=== PATIENT | female | born 1995 | race Caucasian/White ===

== ENCOUNTER 2020-06-05 17:31 | Outpatient (REF) | payer BC, SELFPAY | END 2020-06-05 17:32 | disposition home or self-care (01) | LOC: HO.LAB 17:31 | PROVIDERS: Visit Provider Internal Medicine | DX: Z20.828 Contact with and (suspected) exposure to other viral communicable diseases (principal) | CPT/HCPCS: 87635 ==

== ENCOUNTER 2020-11-10 15:39 | Emergency (ER) | payer MEDICAID, SELFPAY ==
[2020-11-10 17:18] VITALS: BP 118/50; PULSE 89; RESP 16; TEMP 37.2; O2SAT 100; BMI 22.4
--- NOTE | 2020-11-10 17:19 | ED.EYEPROB ---
HPI - Eye Problem General Chief complaint: Eye Problems Stated complaint: eye issues Time Seen by Provider: 11/10/20 17:11 History of Present Illness HPI Narrative: Patient complains of left eye redness with a discharge and eyes being stuck together this morning as well as some mild pain in the eye, no vision loss Related Data Previous Rx's Medication Instructions Recorded erythromycin 0.5 inch OPHTHALMIC (EYE) TID 5 11/10/20 Days #3.5 g ibuprofen 600 mg PO Q6H PRN #20 tab 11/10/20 Allergies Allergy/AdvReac Type Severity Reaction Status Date / Time No Known Allergies Allergy Verified 11/10/20 17:22 [No Known Allergies*] Review of Systems Review of Systems: Positive for left eye discomfort as well as redness and discharge Negatives are no fever no chills no dizziness no weakness no headache no vision loss no photophobia no runny nose no sore throat no rash PMFSH Past Medical History Attestation statement: The following information was validated with the patient. PMFSH Narrative: Patient does not wear contact Source: nursing notes reviewed Social History Social History Alcohol intake: never Smoked in Last 30 Days: No Use of substances other than those prescribed or required for medical reasons: No Any prior treatment program specific to substance use: No Advance Directives: No Advance Directives Information Provided: No Physical Exam Vital Signs: Vital Signs: Last Vital Signs Temp 99.0 F 11/10/20 17:18 Pulse 89 11/10/20 17:18 Resp 16 11/10/20 17:18 BP 118/50 L 11/10/20 17:18 Pulse Ox 100 11/10/20 17:18 Body Mass Index 22.4 General appearance no acute distress comfortable relaxed and cooperative Head is normocephalic atraumatic The eyes the right eye is normal, the left eye is injected with redness and discharge the redness of the conjunctiva, The eye is stained and staining showed a very small superior corneal abrasion, pupils equal round reactive to light, extraocular motions are intact Vision was 2020 bilaterally after tetracaine Neck is supple Respiratory no distress Extremities full range of motion x4 Skin no rashes Course Course Course Narrative: Exam showed a small corneal abrasion, as well as likely conjunctivitis so patient is treated with antibiotic ointment and will follow with with eye doctor or return to ER if pain worsens or she loses vision, or if treatment is unsuccessful Discharge Plan Discharge Clinical Impression: Corneal abrasion, Conjunctivitis Patient Disposition: Home, Self-Care Additional Instructions: You had a small abrasion to the cornea which can cause pain, and the conjunctiva were read so we are treating for both conjunctivitis and a scratch on the cornea Return any time for worsening eye pain or vision loss or any worse condition If needed follow with primary doctor or eye doctor next week Prescriptions: New erythromycin 5 mg/gram (0.5 %) ointment 0.5 inch ophthalmic (eye) TID 5 Days Qty: 3.5 RF: 0 ibuprofen 600 mg tablet 600 mg PO Q6H PRN (Reason: pain) Qty: 20 RF: 0 Referrals: Reza Menchaca [Physician] - 2 days (Corneal abrasion small and conjunctivitis) Interventions: ED Discharge Assessment Last Done: 11/10/20 18:40 Discharge Date/Time: 11/10/20 18:42
[2020-11-10] MEDS: Erythromycin Base 0.5% Oph Oin 1 GM TUBE 1 CM EYE-LEFT (18:28)
[2020-11-10] MEDS: Fluorescein Sodium STRIP 1 STRIP EYE-LEFT (18:28)
[2020-11-10] MEDS: Tetracaine HCl/PF 0.5% Oph Sol 4 ML DROPS 1 DROP EYE-LEFT (18:28)
== END 2020-11-10 18:42 | disposition home or self-care (01) ==
PROVIDERS: Emergency Provider Internal Medicine
DX: H10.9 Unspecified conjunctivitis (principal); S05.02XA Injury of conjunctiva and corneal abrasion without foreign body, left eye, initial encounter; X58.XXXA Exposure to other specified factors, initial encounter; Y93.9 Activity, unspecified; Y92.9 Unspecified place or not applicable; Y99.9 Unspecified external cause status
CPT/HCPCS: 99283; 99284

== ENCOUNTER 2021-01-31 13:32 | Emergency (ER) | payer MEDICAID, SELFPAY ==
[2021-01-31 13:35] VITALS: BP 101/55; PULSE 107; RESP 18; TEMP 36.9; O2SAT 99; BMI 21.6
--- NOTE | 2021-01-31 14:29 | ED_ITS ---
HPI - General Adult General Chief complaint: General Medical Stated complaint: COVID SYMPTONS Time Seen by Provider: 01/31/21 14:06 History of Present Illness HPI narrative: Patient is a 25-year-old female had her coronavirus vaccine 2 days prior. Now has lost her sense of smell. Having generalized malaise slight cough. Family member also have similar symptoms. Patient denies any objective fever feels subjectively warm. Patient denies any past medical history. Patient is from home. Related Data Previous Rx's Medication Instructions Recorded erythromycin 0.5 inch OPHTHALMIC (EYE) TID 5 11/10/20 Days #3.5 g ibuprofen 600 mg PO Q6H PRN #20 tab 11/10/20 Allergies Allergy/AdvReac Type Severity Reaction Status Date / Time No Known Allergies Allergy Verified 11/10/20 17:22 [No Known Allergies*] Review of Systems Review of Systems: Constitutional: No Weight loss, positive Fever, No Chills, No Night Sweats, No Fatigue, No Malaise ENT/Mouth: No Hearing loss, No Ear Pain, No Nasal Congestion, No Sinus Pain, No Hoarseness, No sore throat, No Rhinorrhea, No Swallowing Difficulty Eyes: No Eye Pain, No Swelling, No Redness, No Foreign Body, No Discharge, No Vision Changes Cardiovascular: No Chest Pain, No SOB, No Dyspnea on Exertion, No Orthopnea, No Edema, No Palpitations Respiratory: Positive Cough, No Sputum, No Wheezing, No Smoke Exposure, No Dyspnea Gastrointestinal: No Nausea, No Vomiting, No Diarrhea, No Constipation, No abdominal Pain, No Hematochezia, No Melena Genitourinary: no irregular bleeding, No Dysuria, No Urinary Frequency, No Hematuria, No Urinary Incontinence, No Urgency, No Flank Pain, No Urinary Flow Changes, No Hesitancy Musculoskeletal: No joint pain, No Myalgias, No Joint Swelling Skin: No Skin Lesions, No rash Neuro: No Weakness, No Numbness, No Paresthesias, No Loss of Consciousness, No Dizziness, No Headache Psych: No Anxiety/Panic, No Depression, No SI/HI/AH/VH, No Social Issues, Heme/Lymph: No Bruising, No Bleeding,No Lymphadenopathy Endocrine: No Polyuria, No Polydipsia, No Temperature Intolerance PMF Past Medical History Attestation statement: The following information was validated with the patient. Medical History No known health problems Social History Social History Alcohol intake: never Smoked in Last 30 Days: No Use of substances other than those prescribed or required for medical reasons: No Advance Directives: No Advance Directives Information Provided: No Physical Exam Vital Signs: Vital Signs: Last Vital Signs Temp 98.5 F 01/31/21 13:35 Pulse 107 H 01/31/21 13:35 Resp 18 01/31/21 13:35 BP 101/55 L 01/31/21 13:35 Pulse Ox 99 01/31/21 13:35 Body Mass Index 21.6 Appearance: Alert. Oriented X3. No acute distress. Eyes: Pupils equal, round and reactive to light. ENT: Pharynx normal. Neck: Normal inspection. Neck supple. No lymph nodes noted. No crepitus CVS: Normal heart rate and rhythm. Pulses normal. Normal S1 and S2 Respiratory: No respiratory distress. Breath sounds normal. No Wheezing. No rales Abdomen: Soft and nontender. No rigidity. No distention. good BS x4 Skin: Skin warm and dry. Normal skin color. Normal skin turgor. Extremities: No lower extremity edema. Neurovascular intact to all extremities. No Lacerations. No Rash Neuro: Oriented X 3. No motor deficit. No sensory deficit. Moving all extermities. No slurred speech Medical Decision Making MDM Narrative Medical decision making narrative: Patient's O2 sats 99% on room air. No distress. Lungs are clear. Will discharge patient home. Potentially patient has COVID. The coronavirus swab was sent. In stable condition. Patient told to follow social isolation anyway. She has a sick contact. Another possibility is from the coronavirus vaccine. Will have patient take some Motrin she her vital signs are normal. In stable condition. Discharge Plan Discharge Clinical Impression: COVID-19 Patient Disposition: Home, Self-Care Instructions: COVID-19 (Coronavirus Disease 2019) (ED) Prescriptions: No Action erythromycin 5 mg/gram (0.5 %) ointment 0.5 inch ophthalmic (eye) TID 5 Days Qty: 3.5 RF: 0 ibuprofen 600 mg tablet 600 mg PO Q6H PRN (Reason: pain) Qty: 20 RF: 0 Referrals: [place],[facility] [Primary Care Provider] - 2 days
[2021-01-31 14:57] LABS: COVID-19 Test Negative (Negative)
== END 2021-01-31 16:37 | disposition home or self-care (01) ==
PROVIDERS: Emergency Provider Emergency Medicine Emergency Medical Services
DX: R53.81 Other malaise (principal); R43.9 Unspecified disturbances of smell and taste; Z20.822 Contact with and (suspected) exposure to COVID-19
CPT/HCPCS: 36415; 87635; 99283